=== PATIENT | female | born 2000 | race Caucasian/White ===

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

== ENCOUNTER 2019-03-08 11:07 | Emergency (ER) | payer BC ==
[2019-03-08] MEDS ORDERED: BACTRIM DS PO ONE (12:07)
[2019-03-08] MEDS ORDERED: IBUPROFEN PO ONE (12:07)
--- NOTE | 2019-03-08 12:10 | Emergency Department Report ---
ED Rash HPI - HPI Chief Complaint: Allergic Reaction Stated Complaint: THROAT SOAR/BUMP/ML Time Seen by Provider: 03/08/19 12:04 Duration: 1 Day (approximately) Location: Neck Suspected Cause: Insect (possible), Unknown Severity: mild Other History: Patient reports redness, swelling and pain under her chin. Reports hx of eczema ED Review of Systems ROS: Stated complaint: THROAT SOAR/BUMP/ML Other details as noted in HPI Other: GENERAL: No weight change, fatigue, fever, chills, or night sweats SKIN: Redness, swelling pain under her chin. No changes in skin or hair, no itching, no jaundice HEAD: No trauma, headache, or visual changes EYES: No blurriness, tearing, itching, acute visual loss, conjunctival discoloration, or scleral icterus EARS: No hearing loss, tinnitus, vertigo, or earache NOSE: No rhinorrhea, stuffiness, sneezing, itching, or epistaxis MOUTH: No bleeding gums, hoarseness, sore throat, or swelling CARDIAC: No new murmur, chest pain, palpitations, dyspnea on exertion, orthopnea, PND, or edema RESPIRATORY: No shortness of breath, wheeze, cough, sputum production, hemoptysis, pneumonia, asthma, bronchitis, or emphysema GI: No change in appetite, nausea, vomiting, dysphagia, diarrhea, constipation, hematemesis, melena, hematochezia, or abdominal pain URINARY: No frequency, urgency, polyuria, dysuria, hematuria, or incontinence MUSCULOSKELETAL: No muscle weakness, joint stiffness, decrease in range of motion, redness, swelling NEUROLOGIC: No headache, loss of sensation, numbness, tingling, tremors, weakness, paralysis, seizures HEMATOLOGIC: No anemia, easy bruising, bleeding, petechiae, or purpura ENDOCRINE: No hot or cold intolerance, sweating, polyuria, polydipsia or, polyphagia no thyroid problems PSYCHIATRIC: No change in mood, no anxiety, no depression ED Past Medical Hx - Past Medical History Previous Medical History?: No - Surgical History Past Surgical History?: No - Social History Smoking Status: Never Smoker Substance Use Type: None - Medications Home Medications: Home Medications Medication Instructions Recorded Confirmed Last Taken Type Ibuprofen [Motrin 600 MG tab] 600 mg PO Q6HR PRN #18 tablet 03/08/19 Unknown Rx Sulfamethoxazole/Trimethoprim 1 each PO ONCE #14 tablet 03/08/19 Unknown Rx [Bactrim DS TAB] Rash Exam - Exam General: Vital signs noted. No distress. Alert and acting appropriately. GENERAL: Patient in no acute distress HEAD: Normocephalic, atraumatic EYES: PERRLA, EOM intact, no scleral icterus, no conjunctival hemorrhage, visual [place] and acuity wnl NOSE: No tenderness, discharge, sinus tenderness MOUTH: No erythema, bleeding, exudate HEART: pulses are symmetric LUNGS: No respiratory distress. MUSCULOSKELETAL: Normal joint range of motion, no redness, no swelling, no tenderness NEUROLOGIC: GCS 15, Alert and Oriented x3, Cranial nerves intact, normal sensation, normal strength, normal gait, no cerebellar deficit, NIHSS 0 PSYCHIATRIC: No homicidal or suicidal ideation, no anxiety, no depression, no hallucinations SKIN: Area approximately 1 cm in diameter of erythema swelling, no discharge. Skin is warm and dry ED Course Vital Signs 03/08/19 11:13 Temperature 98.3 F Pulse Rate 103 H Respiratory 18 Rate Blood Pressure 121/86 O2 Sat by Pulse 100 Oximetry ED Medical Decision Making - Medical Decision Making Patient comfortable. Plan treat for presumable cellulitis. Plan discharge with outpatient follow up. Return if any worsening. Critical care attestation.: If time is entered above; I have spent that time in minutes in the direct care of this critically ill patient, excluding procedure time. ED Disposition Clinical Impression: Cellulitis Qualifiers: Site of cellulitis: neck Qualified Code(s): L03.221 - Cellulitis of neck Disposition: - TO HOME OR SELFCARE Is pt being admited?: No Condition: Stable Instructions: Cellulitis (ED) Prescriptions: Sulfamethoxazole/Trimethoprim [Bactrim DS TAB] 1 each PO ONCE #14 tablet Ibuprofen [Motrin 600 MG tab] 600 mg PO Q6HR PRN #18 tablet PRN Reason: Pain, Mild (1-3) Referrals: ALIREZA DEL ANGEL MD [Primary Care Provider] - 2-3 Days Time of Disposition: 12:09
[2019-03-08 12:30] VITALS: BP 121/84
== END 2019-03-08 12:28 | disposition home or self-care (01) ==
LOC: ED 11:07
DX: L03.221 Cellulitis of neck (principal); Z79.899 Other long term (current) drug therapy
CPT/HCPCS: 99282

== ENCOUNTER 2019-06-20 13:08 | Emergency (ER) | payer BC ==
[2019-06-20 13:21] VITALS: BP 135/81
--- NOTE | 2019-06-20 13:30 | Event Note ---
ED Screening Note ED Screening Note: pt has chest pain that began a week ago states it feels like stabbing pain hx of asthma states she has a dry cough no fever no productive cough elevated HR in triage This initial assessment/diagnostic orders/clinical plan/treatment(s) is/are subject to change based on patients health status, clinical progression and re- assessment by fellow clinical providers in the ED. Further treatment and workup at subsequent clinical providers discretion. Patient/guardian urged not to elope from the ED as their condition may be serious if not clinically assessed and managed. Initial orders include: CXR
--- NOTE | 2019-06-20 14:04 | XRay Report ---
CHEST 2 VIEWS INDICATION / CLINICAL INFORMATION: Cough, chest pain for one week. COMPARISON: None available. FINDINGS: SUPPORT DEVICES: None. HEART / MEDIASTINUM: No significant abnormality. LUNGS / PLEURA: No significant pulmonary or pleural abnormality. No pneumothorax. ADDITIONAL FINDINGS: No significant additional findings. IMPRESSION: 1. No acute finding. Signer Name: Sivakumar Hunt MD Signed: 06/20/2019 1:59 PM Workstation Name: [id number]
--- NOTE | 2019-06-20 14:13 | Emergency Department Report ---
ED General Adult HPI - General Chief complaint: Chest Pain Stated complaint: CHEST PAIN Time Seen by Provider: 06/20/19 13:26 Source: patient Mode of arrival: Ambulatory Limitations: No Limitations - History of Present Illness Initial comments: 18-year-old female with asthma posterior margins department complaining of a 1 week history of cough congestion and coryza with wheezing and mucus production -: Gradual, week(s) (1) Location: chest Radiation: non-radiation Quality: dull Consistency: constant Improves with: none Worsens with: none Associated Symptoms: cough. denies: confusion, diaphoresis, loss of appetite, malaise, nausea/vomiting, shortness of breath, syncope - Related Data Previous Rx's Medication Instructions Recorded Last Taken Type Ibuprofen [Motrin 600 MG tab] 600 mg PO Q6HR PRN #18 tablet 03/08/19 Unknown Rx Sulfamethoxazole/Trimethoprim 1 each PO ONCE #14 tablet 03/08/19 Unknown Rx [Bactrim DS TAB] predniSONE [Deltasone] 20 mg PO DAILY #5 tablet 03/11/19 Unknown Rx Azithromycin [Zithromax] 500 mg PO QDAY #3 tablet 06/20/19 Unknown Rx Benzonatate [Tessalon Perles] 200 mg PO Q8HR #20 capsule 06/20/19 Unknown Rx predniSONE [Deltasone] 50 mg PO QDAY #5 tab 06/20/19 Unknown Rx Allergies Allergy/AdvReac Type Severity Reaction Status Date / Time guaifenesin [From Robitussin] Allergy Hives Verified 04/20/17 15:09 peanut Allergy Anaphylaxis Verified 04/20/17 15:09 ED Review of Systems ROS: Stated complaint: CHEST PAIN Other details as noted in HPI Comment: All other systems reviewed and negative ED Past Medical Hx - Past Medical History Hx Asthma: Yes Additional medical history: OBESE - Surgical History Past Surgical History?: No - Social History Smoking Status: Never Smoker Substance Use Type: None - Medications Home Medications: Home Medications Medication Instructions Recorded Confirmed Last Taken Type Ibuprofen [Motrin 600 MG tab] 600 mg PO Q6HR PRN #18 tablet 03/08/19 Unknown Rx Sulfamethoxazole/Trimethoprim 1 each PO ONCE #14 tablet 03/08/19 Unknown Rx [Bactrim DS TAB] predniSONE [Deltasone] 20 mg PO DAILY #5 tablet 03/11/19 Unknown Rx Azithromycin [Zithromax] 500 mg PO QDAY #3 tablet 06/20/19 Unknown Rx Benzonatate [Tessalon Perles] 200 mg PO Q8HR #20 capsule 06/20/19 Unknown Rx predniSONE [Deltasone] 50 mg PO QDAY #5 tab 06/20/19 Unknown Rx ED Physical Exam - General Limitations: No Limitations General appearance: alert, in no apparent distress - Head Head exam: Present: atraumatic, normocephalic - Eye Eye exam: Present: normal appearance, PERRL, EOMI Pupils: Present: normal accommodation - ENT ENT exam: Present: mucous membranes moist - Neck Neck exam: Present: normal inspection - Respiratory Respiratory exam: Present: normal lung sounds bilaterally. Absent: respiratory distress - Cardiovascular Cardiovascular Exam: Present: regular rate, normal rhythm. Absent: systolic murmur, diastolic murmur, rubs, gallop - GI/Abdominal GI/Abdominal exam: Present: soft, normal bowel sounds - Extremities Exam Extremities exam: Present: normal inspection - Back Exam Back exam: Present: normal inspection - Neurological Exam Neurological exam: Present: alert, oriented X3 - Psychiatric Psychiatric exam: Present: normal affect, normal mood - Skin Skin exam: Present: warm, dry, intact, normal color. Absent: rash ED Course Vital Signs 06/20/19 13:20 Temperature 98.0 F Pulse Rate 110 H Respiratory 18 Rate Blood Pressure 135/81 O2 Sat by Pulse 100 Oximetry ED Medical Decision Making - EKG Data EKG shows normal: sinus rhythm Rate: tachycardia - EKG Data When compared to previous EKG there are: no significant change Interpretation: normal EKG - Radiology Data Radiology results: report reviewed [address] [address] XRay Report Signed Patient: CAT COBIAN MR#: [id number] : 2000 Acct:[id number] Age/Sex: 18 / F ADM Date: 06/20/19 Loc: ED Attending Dr: Ordering Physician: EVGENY AVELAR Date of Service: 06/20/19 Procedure(s): XR chest routine 2V Accession Number(s): [id number] cc: EVGENY AVELAR Fluoro Time In Minutes: CHEST 2 VIEWS INDICATION / CLINICAL INFORMATION: Cough, chest pain for one week. COMPARISON: None available. FINDINGS: SUPPORT DEVICES: None. HEART / MEDIASTINUM: No significant abnormality. LUNGS / PLEURA: No significant pulmonary or pleural abnormality. No pneumothorax. ADDITIONAL FINDINGS: No significant additional findings. IMPRESSION: 1. No acute finding. Signer Name: Sivakumar Hunt MD Signed: 06/20/2019 1:59 PM Workstation Name: [id number] Transcribed By: ELSY Dictated By: Sivakumar Hunt MD Electronically Authenticated By: Sivakumar Hunt MD Signed Date/Time: 06/20/191358 DD/ 58 TD/TT: - Medical Decision Making COUGH This patient presents with acute cough, most consistent with asthma. Differential diagnosis includes otitis, pneumonia, pleural effusion, interstitial lung disease. Presentation not consistent with acute bacterial pneumonia, influenza, asthma, transient airway hyperresponsiveness. Presentation not consistent with chronic causes of cough (including GERD, postnasal discharge, medication side effect, CHF, lung cancer or mass). Plan: CXR, supportive care, reassess CHEST Pain This patient presents with chest pain that is very unlikely angina or acute coronary syndrome. The emergency department evaluation has not identified any cause for suspicion that this chest pain has a cardiac etiology. Based on their history, EKG (which showed no evidence of ischemia or infarction) and imaging, in addition to the patient's physical exam, I see no evidence at this time for a malignant etiology for the patient's chest pain. There is no acute evidence for pulmonary embolus, acute myocardial infarction, pneumothorax, Boerhaeve syndrome, cardiac tamponade, thoracic artery dissection, or any other emergent cardiac, pulmonary or aortic pathology. Given the low pre-test probability for cardiac etiology of chest pain and the absence of any sign of ischemia or infarction, discharge for outpatient follow-up and further evaluation is reasonable. I have explained to the patient that even though a cardiac problem is very unlikely, follow-up and further testing is required to reduce further the alread y small uncertainty that exists. Other life-threatening diagnoses have been considered. The patient understands the need to return immediately if their symptoms worsen or they develop any new symptoms, and not to engage in any significant exertional activity until follow-up is obtained. Critical care attestation.: If time is entered above; I have spent that time in minutes in the direct care of this critically ill patient, excluding procedure time. ED Disposition Clinical Impression: Cough, Chest pain Disposition: DC-01 TO HOME OR SELFCARE Is pt being admited?: No Does the pt Need Aspirin: No Condition: Stable Instructions: Chest Pain (ED) Referrals: OMA LANDEROS MD [Staff Physician] - 3-5 Days
[2019-06-20] MEDS ORDERED: predniSONE 50 MG TAB PO STA (14:43)
[2019-06-20] MEDS ORDERED: HYDROcodone/ACETAMINOPHEN 5-325 MG TAB PO STA (14:43)
== END 2019-06-20 15:55 | disposition home or self-care (01) ==
LOC: ED 13:08
DX: R07.89 Other chest pain (principal); R09.81 Nasal congestion; R06.2 Wheezing; J45.909 Unspecified asthma, uncomplicated; Z79.899 Other long term (current) drug therapy; Z91.010 Allergy to peanuts; Z88.8 Allergy status to other drugs, medicaments and biological substances
CPT/HCPCS: 71046; 93005; 93010; 99283; J7512

== ENCOUNTER 2020-11-27 19:29 | Emergency (ER) | payer SELFPAY ==
[2020-11-27 19:47] VITALS: BP 125/70
[2020-11-27] MEDS ORDERED: TETANUS,DIPH,PERTUSS(ACELL) VACCINE 0.5 ML SYRINGE IM ONE (20:05)
[2020-11-27] MEDS ORDERED: NEOMY 3.5 MG/BACIT 400 UNITS/POLY B 5000 UNITS/GM OINT PACKET TP ONE (20:08)
--- NOTE | 2020-11-27 20:16 | Emergency Department Report ---
ED Animal Bite HPI - General Chief Complaint: Animal Bite Stated Complaint: DOG BITE Time Seen by Provider: 11/27/20 20:03 Source: patient Mode of arrival: Ambulatory Limitations: No Limitations - History of Present Illness Initial Comments: Patient is a 20-year-old female presents emergency room with complaints of a dog bite to the right 4th finger that occurred earlier today. Patient states that it was her dog who is 8 weeks old. She states that her dog has not had any vaccinations. She states her dog has not been exhibiting any rapid signs and that the dog is normal and healthy. She states that her dog i going to have their vaccinations tomorrow. She states that initially there was bleeding but is since resolved. She is unsure of her last tetanus immunization. She is still able to move the digit. She denies any numbness or weakness. Past medical history of asthma. Allergy to guaifenesin. LNMP end of last month - Related Data Previous Rx's Medication Instructions Recorded Last Taken Type Ibuprofen [Motrin 600 MG tab] 600 mg PO Q6HR PRN #18 tablet 03/08/19 Unknown Rx Sulfamethoxazole/Trimethoprim 1 each PO ONCE #14 tablet 03/08/19 Unknown Rx [Bactrim DS TAB] predniSONE [Deltasone] 20 mg PO DAILY #5 tablet 03/11/19 Unknown Rx Azithromycin [Zithromax] 500 mg PO QDAY #3 tablet 06/20/19 Unknown Rx Benzonatate [Tessalon Perles] 200 mg PO Q8HR #20 capsule 06/20/19 Unknown Rx predniSONE [Deltasone] 50 mg PO QDAY #5 tab 06/20/19 Unknown Rx Amoxicillin/Potassium Clav 1 each PO BID 10 Days #20 tablet 11/27/20 Unknown Rx [Augmentin 875-125 Tablet] Neomycin/Bacitracin/Polymyxinb 1 applicatio TP BID #14 oint...g. 11/27/20 Unknown Rx [Triple Antibiotic Ointment] Allergies Allergy/AdvReac Type Severity Reaction Status Date / Time guaifenesin [From Robitussin] Allergy Hives Verified 04/20/17 15:09 peanut Allergy Anaphylaxis Verified 04/20/17 15:09 ED Review of Systems ROS: Stated complaint: DOG BITE Other details as noted in HPI Comment: All other systems reviewed and negative ED Past Medical Hx - Past Medical History Previous Medical History?: Yes Hx Asthma: Yes Additional medical history: OBESE - Surgical History Past Surgical History?: No - Social History Smoking Status: Current Every Day Smoker Substance Use Type: Alcohol, Marijuana - Medications Home Medications: Home Medications Medication Instructions Recorded Confirmed Last Taken Type Ibuprofen [Motrin 600 MG tab] 600 mg PO Q6HR PRN #18 tablet 03/08/19 Unknown Rx Sulfamethoxazole/Trimethoprim 1 each PO ONCE #14 tablet 03/08/19 Unknown Rx [Bactrim DS TAB] predniSONE [Deltasone] 20 mg PO DAILY #5 tablet 03/11/19 Unknown Rx Azithromycin [Zithromax] 500 mg PO QDAY #3 tablet 06/20/19 Unknown Rx Benzonatate [Tessalon Perles] 200 mg PO Q8HR #20 capsule 06/20/19 Unknown Rx predniSONE [Deltasone] 50 mg PO QDAY #5 tab 06/20/19 Unknown Rx Amoxicillin/Potassium Clav 1 each PO BID 10 Days #20 tablet 11/27/20 Unknown Rx [Augmentin 875-125 Tablet] Neomycin/Bacitracin/Polymyxinb 1 applicatio TP BID #14 oint...g. 11/27/20 Unknown Rx [Triple Antibiotic Ointment] ED Physical Exam - General Limitations: No Limitations General appearance: alert, in no apparent distress - Head Head exam: Present: atraumatic, normocephalic - Eye Eye exam: Present: normal appearance - ENT ENT exam: Present: mucous membranes moist - Respiratory Respiratory exam: Absent: respiratory distress, accessory muscle use - Neurological Exam Neurological exam: Present: alert, oriented X3 - Psychiatric Psychiatric exam: Present: normal affect, normal mood - Skin Skin exam: Present: warm, dry, other (1 cm laceration to the palmar surface of the right 4th finger, FROM of the RUE, no bony ttp, no active bleeding, superficial, no muscle or tendon invovlvement, no foreign body, neurovascularly intact) ED Course Vital Signs 11/27/20 19:41 Temperature 98.9 F Pulse Rate 93 H Respiratory 18 Rate Blood Pressure 125/70 O2 Sat by Pulse 99 Oximetry - Reevaluation(s) Reevaluation #1: Patient is a 20-year-old female presents emergency room with complaints of a dog bite to the right 4th finger that occurred earlier today. Patient states that it was her dog who is 8 weeks old. She states that her dog has not had any vacc inations. She states her dog has not been exhibiting any rapid signs and that the dog is normal and healthy. She states that her dog i going to have their vaccinations tomorrow. She states that initially there was bleeding but is since resolved. She is unsure of her last tetanus immunization. She is still able to move the digit. She denies any numbness or weakness. Past medical history of asthma. Allergy to guaifenesin. LNMP end of last month. Vitals are stable. On exam:1 cm laceration to the palmar surface of the right 4th finger, FROM of the RUE, no bony ttp, no active bleeding, superficial, no muscle or tendon involvement, no foreign body, neurovascularly intact. Patient given Tdap. Wound irrigated with saline and thoroughly scrubbed with Betadine, is not gaping open, does not need repair, patient has full range of motion and no bony tenderness palpation, antibiotic ointment and dressing placed. Discussed wound care with patient. Advised patient to observe her dog for the next 10 days for any rabid signs. Given prescription for Augmentin and triple antibiotic. advised patient Please use medication as prescribed. Please keep area clean, dry, covered. Wash with antibacterial soap and water and pat dry. Follow-up with a primary care doctor for reexamination. Return to emergency room for new or worsening symptoms. Critical care attestation.: If time is entered above; I have spent that time in minutes in the direct care of this critically ill patient, excluding procedure time. ED Disposition Clinical Impression: Dog bite Qualifiers: Encounter type: initial encounter Qualified Code(s): W54.0XXA - Bitten by dog, initial encounter Disposition: DC-01 TO HOME OR SELFCARE Is pt being admited?: No Does the pt Need Aspirin: No Condition: Stable Instructions: Animal Bite, Adult, [id number], Laceration Care, Adult Additional Instructions: Please use medication as prescribed. Please keep area clean, dry, covered. Wash with antibacterial soap and water and pat dry. Follow-up with a primary care doctor for reexamination. Return to emergency room for new or worsening symptoms. Prescriptions: Amoxicillin/Potassium Clav [Augmentin 875-125 Tablet] 1 each PO BID 10 Days #20 tablet Neomycin/Bacitracin/Polymyxinb [Triple Antibiotic Ointment] 1 applicatio TP BID #14 oint...g. Referrals: PRIMARY CARE, [Primary Care Provider] - 2-3 Days OMA LANDEROS MD [Staff Physician] - 2-3 Days [facility] [Provider Group] - 2-3 Days Time of Disposition: 20:14 Print Language: CENTRAL AFRICAN
== END 2020-11-27 21:15 | disposition home or self-care (01) ==
LOC: ED 19:29
DX: S61.256A Open bite of right little finger without damage to nail, initial encounter (principal); E66.9 Obesity, unspecified; J45.909 Unspecified asthma, uncomplicated; F17.200 Nicotine dependence, unspecified, uncomplicated; F12.90 Cannabis use, unspecified, uncomplicated; Z79.899 Other long term (current) drug therapy; Z88.8 Allergy status to other drugs, medicaments and biological substances; Z91.010 Allergy to peanuts; W54.0XXA Bitten by dog, initial encounter; Y93.89 Activity, other specified; Y92.89 Other specified places as the place of occurrence of the external cause; Y99.8 Other external cause status
CPT/HCPCS: 90471; 90715; 99282; A6250

== ENCOUNTER 2021-11-28 20:47 | Emergency (ER) | payer SELFPAY ==
[2021-11-28 20:55] VITALS: BP 130/84
== END 2021-11-29 01:00 | disposition left against medical advice (07) ==
LOC: ED 20:47
DX: J45.909 Unspecified asthma, uncomplicated (principal); Z53.21 Procedure and treatment not carried out due to patient leaving prior to being seen by health care provider